=== PATIENT | female | born 1990 | race Caucasian/White ===

== ENCOUNTER 2023-01-30 22:45 | Emergency (ER) | payer MEDICAID ==
[~2023-01-30] VITALS: Ht 152.4 cm; Wt 107.5 kg
[2023-01-30 23:20] VITALS: BP_SYST 139
[2023-01-31] MEDS ORDERED: DIPHENHYDRAMINE HCL 25 MG CAPSULE PO ONE (01:30)
[2023-01-31] MEDS ORDERED: PRED20TA PO (01:33)
[2023-01-31] MEDS ORDERED: BEN50 PO (01:33)
[2023-01-31 01:51] VITALS: BP_SYST 129
== END 2023-01-31 01:51 | disposition home or self-care (01) ==
LOC: SED 22:45
DX: R21 Rash and other nonspecific skin eruption (principal); Z79.899 Other long term (current) drug therapy
CPT/HCPCS: 99283; Q0163

== ENCOUNTER 2023-04-04 21:13 | Emergency (ER) | payer MEDICAID ==
[~2023-04-04] VITALS: Ht 152.4 cm; Wt 104.8 kg
[~2023-04-04 21:13] MED LIST: BEN50 PO; PRED20TA PO
--- NOTE | 2023-04-04 21:41 | NUR ---
PATIENT COMPLAINTS OF FEVER AND DIARRHEA X 5 DAYS, 3 EPISODE OF RECTAL BLEEDING TODAY, STATES SHE CAN FEEL A BULGING AREA TO RECTUM
[2023-04-04 21:43] VITALS: BP_SYST 120; PULSE 84; RESP 18; TEMP 98; O2SAT 96
--- NOTE | 2023-04-05 | NUR ---
REPORT GIVEN TO RONIT RN, PATIENT PLACED IN ED BED 3
--- NOTE | 2023-04-05 00:10 | NUR ---
PT BIB BY SELF WITH COMPLAING OF RECTAL BLEEEDING THAT STARTED TODAY. PT STATES SHE WENT TO THE BATHROOM EARLIER TODAY AND NOTED BLEEDING FROM THE RECTUM. PT STATES SHE WENT TO THE BATHROOM AGAIN 4 HOURS LATER AND NOTED EVEN MORE BLEEDING, AND BLOOD CLOTS. PT STATES SHE HAS ALSO BEEN FEELING DIZZINESS. PT HAS HX OF C SECTION AND A GALLBLADDER REMOVAL. PT STATES SHE HAD A FEVER EARLIER THIS WEEK. PT IS NOT CURRENT FEBRIL. PT IS [facility] 15 EYES OPEN SPONTANEOUSLY. PT IS ALERT AND ORIENTED TO PERSON, PLACE, TIME, AND SITUATION. PT OBEYS COMMANDS. PT DENIES AUDITORY OR VISUAL DISTURBANCES. PT DENIES N/V. PT DENIES SOB OR CHEST PAIN. PT IS IN ROOM 3 ON THE MONITOR. PLAN OF CARE CONTINUES.
--- NOTE | 2023-04-05 00:20 | NUR ---
ER at bedside examining patient.
[2023-04-05 00:57] LABS: BASOPHILS % (AUTO) 0.6 % (0.0-2.0); EOSINOPHILS # (AUTO) 0.1 K/uL (0.0-0.4); EOSINOPHILS % (AUTO) 1.5 % (0.0-4.0); HEMATOCRIT 40.4 % (36-48); HEMOGLOBIN 13.4 g/dL (12.0-16.0); LYMPHOCYTES # (AUTO) 2.3 K/uL (1.0-5.5); LYMPHOCYTES % (AUTO) 32.6 % (20.5-51.5); MEAN CORPUSCULAR HEMOGLOBIN 28 pg (27-31); MEAN CORPUSCULAR HGB CONC 33 % (32-36); MEAN CORPUSCULAR VOLUME 86 fL (79.0-98.0); MONOCYTES # (AUTO) 0.7 K/uL (0.0-1.0); MONOCYTES % (AUTO) 10.4 % (1.7-9.3); NEUTROPHILS % (AUTO) 54.9 % (40.0-70.0); PLATELET COUNT (AUTO) 292 K/uL (130-430); RED BLOOD CELL COUNT(AUTO) 4.72 MIL/uL (4.2-6.2); RED CELL DISTRIBUTION WIDTH 14.8 % (9.0-15.0); WHITE BLOOD COUNT (AUTO) 7.2 K/uL (4.8-10.8)
[2023-04-05 01:04] LABS: CALCIUM 8.3 mg/dL (8.4-11.0); CREATININE 0.85 mg/dL (0.55-1.30)
--- NOTE | 2023-04-05 01:05 | NUR ---
Rectal exam performed by DR. ESCOBAR with RN RONIT at bedside during procedure. Patient tolerated well.
[2023-04-05 01:08] LABS: ALBUMIN 3.3 g/dL (3.4-4.8); TOTAL BILIRUBIN 0.3 mg/dL (0.0-1.0)
--- NOTE | 2023-04-05 02:31 | NUR ---
PT IN ROOM 3 ON HER PHONE. PLAN OF CARE CONTINUES.
[2023-04-05] MEDS ORDERED: HYDR30CR79 TP (02:44)
[2023-04-05 03:06] VITALS: BP_SYST 109; PULSE 68; RESP 15; TEMP 97.4; O2SAT 98
--- NOTE | 2023-04-05 03:15 | NUR ---
Patient given written and verbal discharge instructions and verbalizes understanding. ER MD discussed with patient the results and treatment provided. Patient in stable condition. ID arm band removed. Rx of HYDROCORTISONE given. Patient educated on HEMORROIDS management and to follow up with PMD. Pain Scale 4 OUT OF 10. Opportunity for questions provided and answered. Medication side effect fact sheet provided.
== END 2023-04-05 03:06 | disposition home or self-care (01) ==
LOC: SED 21:13
DX: K64.8 Other hemorrhoids (principal); R50.9 Fever, unspecified; R19.7 Diarrhea, unspecified; K92.1 Melena; Z79.899 Other long term (current) drug therapy
CPT/HCPCS: 36415; 80053; 82272; 83690; 85025; 99283